=== PATIENT | female | born 1990 | race Hispanic/Latino ===

== ENCOUNTER 2024-04-15 01:09 | Emergency (ER) | payer SELFPAY ==
[~2024-04-15] VITALS: Ht 157.5 cm; Wt 108.0 kg
[2024-04-15] MEDS: ketOROlac 30MG VIAL (30MG/ML) IVP ONE (01:48)
--- NOTE | 2024-04-15 01:53 | ERN ---
General Chief Complaint: Face Pain/Problem Stated Complaint: FACIAL SWELLING Time Seen by MD: 01:13 Source: patient History of Present Illness Initial Comments Patient is a 34-year-old female with no significant past medical history who presented to the emergency room today with a 1 day history of left facial pain swelling. Patient states that she woke up yesterday with a headache and facial pain. There was also generalized joint pain. Rates the pain as a 10/10, located around the left cheek. Pain is nonradiating and is worse with touch. Patient states that it feels like a bolt of lightning when the left cheek is touched. Patient denies any known insect bites, recent trauma or dental infection . Her last dental visit was years ago and she denies any recent sinus infections. She denies any difficulty chewing, denies airway compromise, denies shortness of breath or dysphagia. Patient states that she had a similar episode in 2020 however it affected just the right side of her face. Allergies: Coded Allergies: No Known Allergies (Unverified Allergy, Unknown, 04/15/24) Home Meds Active Scripts Amoxicillin/Potassium Clav (Augmentin 500-125 Tablet) 500 Mg-125 Mg Tablet, 1 TAB PO BID for 10 Days, #20 TAB 0 Refills Prov:DENISE RODRÍGUEZ MD 04/15/24 Past Medical History Past Medical History: Other Medical History Other: TRIGENIMAL NEURALGIA Past Surgical History: BTL ROS Dictation Constitutional: No appetite loss, No fevers, chills , No night sweats, No weakness, fatigue Eye: No vision change, No redness, pain or discharge ENT: No hearing loss, ear pain or discharge, No nose bleeds, No sore throat, Face: Facial pain Neck: No swelling. pain or stiffness Respiratory: No cough, shortness of breath, wheezing Cardiovascular: No chest pain,, palpitations, dyspnea, No edema Gastrointestinal: No abdominal pain, No nausea, vomiting, No diarrhea, constipation Genitourinary: No painful urination, No blood in urine, No urinary incontinence, No frequency or urgency Musculoskeletal: No joint pain, muscle pain, swelling or stiffness Neurological: No numbness, tingling, No weakness, tremors or seizures . Physical Exam Physical Exam Dictation General: Alert & Oriented, No acute distress. EENT: No conjunctival redness or discharge noted Tympanic membranes are clear, Normal hearing, Oral mucosa is moist, Face: Left facial tenderness Neck: Non-tender, No jugular vein distention, No lymphadenopathy, No thyromegaly, Supple. Respiratory: Lungs are clear to auscultation, Respirations are non-labored, Breath sounds are equal, No chest wall tenderness, _. Cardiovascular: Normal rate, Normal rhythm, No murmur, Good pulses equal in all extremities, Normal peripheral perfusion, No edema. Gastrointestinal: Soft, Non-tender, Non-distended, Normal bowel sounds, No organomegaly, _. Musculoskeletal: Normal range of motion, Normal strength, No tenderness, No swelling, No deformity, Normal gait. Integumentary: Warm, Dry, [place], Intact, No pallor, No rash. Neurologic: Alert, Oriented x4, Normal sensory, No focal defects Psychiatric: Cooperative, Appropriate mood & affect, Normal judgement, Non- suicidal. Results Laboratory and Microbiology Lab and Micro Result Laboratory Tests Test 04/15/24 01:51 White Blood Count 4.6 K/uL (4.8-10.8) L Red Blood Count 4.27 MIL/uL (4.00-5.50) Hemoglobin 11.9 g/dL (12.0-16.0) L Hematocrit 36.9 % (36-48) Mean Corpuscular Volume 86.4 fL (79-99) Mean Corpuscular Hemoglobin 27.9 pg (27.0-33.0) Mean Corpuscular Hemoglobin Concent 32.2 g/dL (32.0-36.0) Red Cell Distribution Width 13.4 % (11.0-15.5) Platelet Count 242 K/uL (130-400) Mean Platelet Volume 9.9 fL (7.5-10.5) Immature Granulocyte % (Auto) 0.4 % (0-1) Neutrophils (%) (Auto) 64.5 % (40.0-77.0) Lymphocytes (%) (Auto) 20.6 % (21.0-51.0) L Monocytes (%) (Auto) 9.2 % (3.0-13.0) Eosinophils (%) (Auto) 4.2 % (0.0-8.0) Basophils (%) (Auto) 1.1 % (0.0-5.0) Neutrophils # (Auto) 3.0 K/uL (1.8-7.7) Lymphocytes # (Auto) 0.9 K/uL (1.0-4.8) L Monocytes # (Auto) 0.4 K/uL (0.1-1.0) Eosinophils # (Auto) 0.19 K/uL (0.00-0.70) Basophils # (Auto) 0.05 K/uL (0.00-0.20) Absolute Immature Granulocyte (auto 0.02 K/uL (0-1) Nucleated Red Blood Cells 0.0 % (0.0-0.19) Sodium Level 143 mmol/L (136-145) Potassium Level 3.8 mmol/L (3.5-5.1) Chloride Level 106 mmol/L (101-111) Carbon Dioxide Level 33 mmol/L (21-32) H Blood Urea Nitrogen 3 mg/dL (7-18) L Creatinine 0.7 mg/dL (0.5-1.0) Glomerular Filtration Rate Calc 118 mL/min (>90) Random Glucose 110 mg/dL (70-105) H Total Calcium 8.3 mg/dL (8.5-10.1) L Serum Test, Qualitative NEGATIVE (NEGATIVE) MDM Potential differential diagnoses include: *Dental abscess Assessment: CBC was done in order to to rule any anemia, infections and to evaluate the overall health of the patient.CMP was ordered in order to assess. various electrolytes, kidney function, and blood glucose levels. We will order a CT maxillofacial with contrast to rule out any masses or abscesses. Will order 10 mg IV Toradol for adequate pain control. I will re-evaluate the patient after treatment and diagnostic exams have returned to determine whether they require further testing, can be safely discharged home, or need admission for further treatment and evaluation. Given the social determinants of health affecting care, including literacy, access to medical care, prescription drug management, and [id number] drugs, I will ensure that treatment plans are tailored accordingly. Revaluation : Patient is alert and oriented. CT scan shows a dental abscess. Ordered viscous Lidocaine and performed an incision and drainage of the abscess. Procedure well tolerated. Disposition: Will discharge patient at this time with prescription of Augmentin PO and instructions to follow up with dentist for further evaluation and management.. Attestation: Patient's case was discussed with the ER MD. Reviewed the documentation, medical decision making and treatment plan. Agrees with the findings and plan of care. ED Course Orders Procedure Category Date Status Time Ct Maxillofacial CT 04/15/24 Resulted W/Contrast 01:41 Testing, LAB 04/15/24 Complete Serum Hcg 01:41 Ketorolac PHA 04/15/24 Complete Tromethamine 30mg/Ml 02:00 Cbc With Differential LAB 04/15/24 Complete 01:45 Basic Metabolic Panel LAB 04/15/24 Complete 01:45 Iohexol (Omnipaque) PHA 04/15/24 Complete 02:37 Amp/Sulbac 3gm+Ns PHA 04/15/24 Complete 100ml (Unasyn 3gm+Ns 1 04:00 Amp/Sulbac 3gm+Ns PHA 04/15/24 Complete 100ml (Unasyn 3gm+Ns 1 04:00 Lidocaine Hcl 2% PHA 04/15/24 Complete Viscous (Lidocaine Hcl 04:30 Lidocaine Hcl 2% PHA 04/15/24 Complete Viscous (Lidocaine Hcl 04:00 Morphine 4mg Syg PHA 04/15/24 Complete (Morphine 4mg Syg) 04:30 Lidocaine Hcl 2% PHA 04/15/24 Complete Viscous (Lidocaine Hcl 05:00 Current Medications Medications (Trade) Dose Ordered Sig/Rosalio Route PRN Reason Start Time Stop Time Status Last Admin Dose Admin Ampicillin Sodium/ Sulbactam Sodium 100 ml @ 100 mls/hr ONCE ONCE IV 04/15/24 04:00 04/15/24 04:48 DC 04/15/24 04:02 Ampicillin Sodium/ Sulbactam Sodium 100 ml @ 100 mls/hr XCHG SIGX IV 04/15/24 04:00 04/15/24 03:52 DC Iohexol (Omnipaque) 75 ml STK-MED ONCE IV 04/15/24 02:37 04/15/24 02:37 DC Ketorolac Tromethamine (toRADol) 30 mg ONCE ONCE IVP 04/15/24 02:00 04/15/24 02:01 DC 04/15/24 01:48 Lidocaine HCl (Lidocaine HCl 2% Viscous) 10 ml ONCE ONCE PO 04/15/24 04:00 04/15/24 04:06 DC Lidocaine HCl (Lidocaine HCl 2% Viscous) 10 ml ONCE ONCE PO 04/15/24 04:30 04/15/24 04:31 DC 04/15/24 04:03 Lidocaine HCl (Lidocaine HCl 2% Viscous) 15 ml ONCE ONCE PO 04/15/24 05:00 04/15/24 05:01 DC 04/15/24 05:02 Morphine Sulfate (morPHINE 4MG SYG) 4 mg ONCE ONCE IV 04/15/24 04:30 04/15/24 04:31 DC 04/15/24 04:30 Vital Signs Date Time Temp Pulse Resp B/P (MAP) Pulse Ox O2 Delivery O2 Flow Rate FiO2 04/15/24 04:33 99.0 70 20 128/80 100 Room Air* 0 21 04/15/24 01:41 99.0 66 20 124/88 100 Room Air* 0 21 04/15/24 01:27 97.7 82 16 54/99 99 Room Air 0 DX & DISP Disposition: Discharge Departure Impression: Primary Impression: Dental abscess Critical Time: 30 minutes Condition: Stable Scripts Amoxicillin/Potassium Clav (Augmentin 500-125 Tablet) 500 Mg-125 Mg Tablet 1 TAB PO BID for 10 Days, #20 TAB 0 Refills Prov: DENISE RODRÍGUEZ MD 04/15/24 Additional Instructions: Discharge Instructions: *Follow up with your primary care dentist in 2 - 3 days after discharge. *Continue all medications as prescribed. Do not discontinue or change dosages without consulting your PCP. *Gradually resume normal activities as tolerated. *Continue a balanced diet . Reduce salt intake to help manage BP. *Seek immediate medical attention if you experience chest pain, SOB or severe headache. *Smoking cessation is strongly advised. Resources for quitting smoking are available upon request. Referrals: SELF,REFERRAL (PCP) I WAS PRESENT AND PARTICIPATED IN THE CARE OF THIS PATIENT ALONGSIDE WITH THE RESIDENT PHYSICIAN. I HAVE REVIEWED AND PERSONALLY MADE AND APPROVED THE MANAGEMENT PLAN THAT IS DOCUMENTED IN THE NOTE BY MYSELF WITH THE RESIDENT PHYSICIAN. I ACKNOWLEDGED FOR RESPONSIBILITY FOR THE PATIENT'S MANAGEMENT PLAN. DENISE RODRÍGUEZ MD Apr 15, 2024 01:53 DYLLAN WEAVER MD Apr 17, 2024 07:39
[2024-04-15 01:58] LABS: BASOPHILS # (AUTO) 0.05 K/uL (0.00-0.20); BASOPHILS % (AUTO) 1.1 % (0.0-5.0); EOSINOPHILS # (AUTO) 0.19 K/uL (0.00-0.70); EOSINOPHILS % (AUTO) 4.2 % (0.0-8.0); HEMATOCRIT 36.9 % (36-48); IMMATURE GRANULOCYTE ABSOLUTE 0.02 K/uL (0-1); LYMPHOCYTES # (AUTO) 0.9 K/uL (1.0-4.8); LYMPHOCYTES % (AUTO) 20.6 % (21.0-51.0); MEAN CORPUSCULAR HEMOGLOBIN 27.9 pg (27.0-33.0); MEAN CORPUSCULAR HGB CONC 32.2 g/dL (32.0-36.0); MEAN CORPUSCULAR VOLUME 86.4 fL (79-99); MONOCYTES # (AUTO) 0.4 K/uL (0.1-1.0); MONOCYTES % (AUTO) 9.2 % (3.0-13.0); NEUTROPHILS % (AUTO) 64.5 % (40.0-77.0); PLATELET COUNT (AUTO) 242 K/uL (130-400); RED BLOOD CELL COUNT(AUTO) 4.27 MIL/uL (4.00-5.50); RED CELL DISTRIBUTION WIDTH 13.4 % (11.0-15.5); WHITE BLOOD COUNT (AUTO) 4.6 K/uL (4.8-10.8)
[2024-04-15 02:06] LABS: CREATININE 0.7 mg/dL (0.5-1.0); POTASSIUM 3.8 mmol/L (3.5-5.1)
[2024-04-15] MEDS ORDERED: IOHEXOL-350 75 ML VIAL IV ONE (02:37)
[2024-04-15] MEDS ORDERED: AMP/SULBAC 3GM+NS 100ML 100 ML IV SCH (04:00)
[2024-04-15] MEDS ORDERED: LIDOCAINE HCL 2% VISCOUS 15 ML UDCUP PO ONE (04:00)
[2024-04-15] MEDS: AMP/SULBAC 3GM+NS 100ML 100 ML IV ONE (04:02)
[2024-04-15] MEDS: LIDOCAINE HCL 2% VISCOUS 15 ML UDCUP PO ONE ×2 (04:03→05:02)
[2024-04-15] MEDS ORDERED: AMOX-426 PO (04:27)
[2024-04-15] MEDS: morPHINE 4 MG SYG IV ONE (04:30)
[2024-04-15 04:33] VITALS: BP 128/80; PULSE 70; RESP 20; TEMP 98.9; O2SAT 100
--- NOTE | 2024-04-15 08:32 | HMCIMG ---
CT MAXILLOFACIAL W/CONTRAST REASON: FACIAL SWELLING/PAIN COMPARISON: None TECHNIQUE: Axial images are obtained through the facial bones and soft tissues following IV contrast, 75 cc Omnipaque 350. Sagittal and coronal reconstruction images were performed. FINDINGS: There is a periapical abscess around tooth #13, left side of the maxilla. There is a break in the overlying cortex is extending to a 1.9 x 1.4 x 0.8 cm focal abscess. There is some adjacent inflammation. Exam appears otherwise unremarkable. There are no other soft tissue abnormalities. There are no other fluid collections. Bones appear otherwise unremarkable. Paranasal sinuses are normally aerated. Globes and retrobulbar soft tissues appear IMPRESSION: 1. Periapical abscess around tooth 13, left side of the maxilla, there is an associated subperiosteal abscess measuring 0.8 x 1.4 x 1.9 cm.
== END 2024-04-15 04:48 | disposition home or self-care (01) ==
LOC: EDH 01:09
DX: K04.7 Periapical abscess without sinus (principal); Z98.51 Tubal ligation status
CPT/HCPCS: 99285; 96374; 70487; 96375; 41800; 80048; 84703; 85025; 36415; J1885; J2270; Q9967; J0295